=== PATIENT | male | born 1970 | race Caucasian/White ===

== ENCOUNTER 2017-09-25 19:32 | Emergency (ER) | payer MEDICAID ==
--- NOTE | 2017-09-25 20:12 | ER Document Report ---
ED Medical Screen (RME) - General Chief Complaint: Head Injury without LOC Stated Complaint: FALL/HEAD INJURY Time Seen by Provider: 09/25/17 20:08 Notes: Was trying to help with his dog while stepping on cinderblocks to get up into his home, patient fell backwards and struck the back of his head breaking a center block. He has laceration bleeding to the right occipital region. There was no loss of consciousness. Does have a history of prior significant brain injury just over 20 years ago. The patient did have a tetanus booster shot on 06/01/2014 when he was seen here for dog bites. I have greeted and performed a rapid initial assessment of this patient. A comprehensive ED assessment and evaluation of the patient, analysis of test results and completion of the medical decision making process will be conducted by additional ED providers. TRAVEL OUTSIDE OF THE [place] IN LAST 30 DAYS: No - Related Data Allergies/Adverse Reactions: No Known Allergies Allergy (Verified 06/01/14 20:25) Past Medical History - Social History Chew tobacco use (# tins/day): No Frequency of alcohol use: Social Drug Abuse: None Neurological Medical History: Reports: Hx Cerebrovascular Accident - age 26 Renal/ Medical History: Denies: Hx Peritoneal Dialysis Past Surgical History: Reports: Hx Orthopedic Surgery - Immunizations Hx Diphtheria, Pertussis, Tetanus Vaccination: No Physical Exam - Vital signs Vitals: Temp Pulse Resp BP Pulse Ox 98.3 F 119 H 20 128/86 H 93 09/25/17 19:50 09/25/17 19:50 09/25/17 19:50 09/25/17 19:50 09/25/17 19:50 Course - Vital Signs Vital signs: Temp Pulse Resp BP Pulse Ox 98.3 F 119 H 20 128/86 H 93 09/25/17 19:50 09/25/17 19:50 09/25/17 19:50 09/25/17 19:50 09/25/17 19:50
[2017-09-25] MEDS ORDERED: ONDANSETRON 4 MG TAB.RAPDIS PO ONE (20:14)
[2017-09-25] MEDS ORDERED: OXYCODONE-ACETAMINOPHEN 5-325 MG TABLET PO ONE (20:14)
--- NOTE | 2017-09-25 21:08 | RADIOLOGY REPORT (SQ) ---
EXAM DESCRIPTION: CT HEAD WITHOUT COMPLETED DATE/TIME: 09/25/2017 8:54 pm REASON FOR STUDY: Occipital contusion laceration, fell on cinderbloc COMPARISON: 10/17/2007 TECHNIQUE: Axial images acquired through the brain without intravenous contrast. Images reviewed wi th bone, brain and subdural windows. Images stored on PACS. All CT scanners at this facility use dose modulation, iterative reconstruction, and/or weight based d osing when appropriate to reduce radiation dose to as low as reasonably achievable (ALARA). [facility]: Dose Right [facility]: CareDose [facility]: Dose Right [facility]: Teradose 4D [facility]: Smart SET RADIATION DOSE: CT Rad equipment meets quality standard of care and radiation dose reduction techniq ues were employed. CTDIvol: 64.6 mGy. DLP: 1034 mGy-cm. mGy. LIMITATIONS: None. FINDINGS: VENTRICLES: Prominent. CEREBRUM: Old right MCA territory infarct. No evidence of acute infarct. No extra-axial fluid colle ction. CEREBELLUM: No masses. No hemorrhage. No alteration of density. No evidence for acute infarction. EXTRAAXIAL SPACES: Mild age-related involutional change. No fluid collections. No masses. ORBITS AND GLOBE: No intra- or extraconal masses. Normal contour of globe without masses. CALVARIUM: No fracture. PARANASAL SINUSES: No fluid or mucosal thickening. SOFT TISSUES: No mass or hematoma. OTHER: No other significant finding. IMPRESSION: No acute findings. EVIDENCE OF ACUTE STROKE: NO. TECHNICAL DOCUMENTATION: JOB ID: [id number] Quality ID # [id number]: Final reports with documentation of one or more dose reduction techniques (e.g., Au tomated exposure control, adjustment of the mA and/or kV according to patient size, use of iterative reconstruction technique) 2010 [employer]- All Rights Reserved
--- NOTE | 2017-09-25 21:22 | ER Document Report ---
ED Head/Face/Scalp Injury - General Chief Complaint: Head Injury without LOC Stated Complaint: FALL/HEAD INJURY Time Seen by Provider: 09/25/17 20:08 Mode of Arrival: Ambulatory Information source: Patient TRAVEL OUTSIDE OF THE [place] IN LAST 30 DAYS: No - HPI Notes: 47-year-old male presented today for evaluation of closed head injury after he sustained a mechanical fall. Patient hit the back of the head without any loss of consciousness. Patient has notable laceration localized to the right parietal scalp. Patient denies any headache, nausea vomiting, neck pain. Patient is not anticoagulated. Bleeding is well controlled with direct pressure - Related Data Allergies/Adverse Reactions: No Known Allergies Allergy (Verified 06/01/14 20:25) Past Medical History - General Information source: Patient - Social History Smoking Status: Current Every Day Smoker Chew tobacco use (# tins/day): No Frequency of alcohol use: Social Drug Abuse: None Family History: Reviewed & Not Pertinent Patient has suicidal ideation: No Patient has homicidal ideation: No Neurological Medical History: Reports: Hx Cerebrovascular Accident - age 26 Renal/ Medical History: Denies: Hx Peritoneal Dialysis Past Surgical History: Reports: Hx Orthopedic Surgery - Immunizations Hx Diphtheria, Pertussis, Tetanus Vaccination: No Review of Systems - Review of Systems Notes: REVIEW OF SYSTEMS: CONSTITUTIONAL: -fevers, -chills EENT: -eye pain, -difficulty swallowing, -nasal congestion CARDIOVASCULAR: -chest pain, -syncope. RESPIRATORY: -cough, -SOB GASTROINTESTINAL: -abdominal pain, -nausea, -vomiting, -diarrhea GENITOURINARY: -dysuria, -hematuria MUSCULOSKELETAL: -back pain, -neck pain SKIN: -rash or skin lesions. HEMATOLOGIC: -easy bruising or bleeding. LYMPHATIC: -swollen, enlarged glands. NEUROLOGICAL: -altered mental status or loss of consciousness, -headache, - neurologic symptoms PSYCHIATRIC: -anxiety, -depression. ALL OTHER SYSTEMS REVIEWED AND NEGATIVE. Physical Exam - Vital signs Vitals: Temp Pulse Resp BP Pulse Ox 98.3 F 119 H 20 128/86 H 93 09/25/17 19:50 09/25/17 19:50 09/25/17 19:50 09/25/17 19:50 09/25/17 19:50 - Notes Notes: Reviewed vital signs and nursing note as charted by RN. CONSTITUTIONAL: Alert and oriented and responds appropriately to questions HEAD: Patient has right parietal scalp hematoma with approximately 5 similar laceration, linear, 5 mm deep, no violation of scalp EYES: PERRL; Conjunctivae clear, sclerae non-icteric ENT: normal nose NECK: Supple without meningismus; non-tender; normal range of motion without any limitations, no cervical lymphadenopathy, no masses CARD: Regular rate and rhythm; no murmurs RESP: Normal chest excursion without splinting or tachypnea ABD/GI: Normal bowel sounds BACK: The back appears normal and is non-tender to palpation EXT: Normal ROM in all joints SKIN: Normal color for age and rac; warm; dry; good turgor; capillary refill < 2 seconds; no acute lesions noted NEURO: .Cranial nerves 3-12 intact. Motor strength 5/5 bilaterally. Sensation intact to touch bilaterally. No pronator drift. Finger to nose intact bilaterally PSYCH: The patient's mood and manner are appropriate. Grooming and personal hygiene are appropriate. Course - Re-evaluation Re-evalutation: 09/25/17 21:56 47-year-old with closed head injury without any loss of consciousness CT head was obtained to rule out intracranial injury, that did not reveal any injuries Tetanus is up-to-date Scalp laceration was repaired with mandi, please see procedure note Discharge home - Vital Signs Vital signs: Temp Pulse Resp BP Pulse Ox 98.3 F 119 H 20 128/86 H 93 09/25/17 19:50 09/25/17 19:50 09/25/17 19:50 09/25/17 19:50 09/25/17 19:50 - Diagnostic Test Radiology reviewed: Image reviewed - CT scan without any intracranial injuries Procedures - Laceration/Wound Repair Head Time completed: 22:01 Wound length (cm): 5 Wound's Depth, Shape: Linear Laceration pre-procedure: Sterile drapes applied Anesthetic type: 1% Lidocaine w/epi Volume Anesthetic (mLs): 5 Wound explored: No foreign body removed, Contaminated Wound Repaired With: Mandi Number of Sutures: 5 Layer Closure?: Yes Post-procedure wound care: Sterile dressing applied Post-procedure NV exam normal: Yes - Normal Complications: No Discharge - Discharge Clinical Impression: Fall, Closed head injury without loss of consciousness, Scalp hematoma, Scalp laceration Condition: Stable Disposition: HOME, SELF-CARE Instructions: Laceration Care ([facility]) Additional Instructions: You can wash your head with soap and water daily Please come back for staple removal in 7-10 days to emergency department Your primary care doctor can also remove the mandi as well Please come back if there are worsening headaches, nausea vomiting, weakness in the arms or legs, fevers, scalp swelling Referrals: LI CEBALLOS PA-C [Primary Care Provider] - Follow up as needed
[2017-09-25] MEDS ORDERED: LIDOCAINE 1%/EPINEPHRINE INJ 20 ML VIAL INJ ONE (21:28)
[2017-09-25] MEDS ORDERED: LIDOCAINE 1% INJ-PF (10 MG/ML) 30 ML SDV ONE (21:29)
[2017-09-25 22:50] VITALS: BP 133/82
== END 2017-09-25 22:15 | disposition home or self-care (01) ==
LOC: ER 19:32
PROC: 0HQ0XZZ Repair Scalp Skin, External Approach (ICD-10-PCS; principal; 2017-09-25)
DX: S01.01XA Laceration without foreign body of scalp, initial encounter (principal); F17.200 Nicotine dependence, unspecified, uncomplicated; W19.XXXA Unspecified fall, initial encounter; Z86.73 Personal history of transient ischemic attack (TIA), and cerebral infarction without residual deficits
CPT/HCPCS: 99283; 70450; 12002; S0119; J3490

== ENCOUNTER 2017-10-03 14:44 | Emergency (ER) | payer MEDICAID ==
[2017-10-03 15:11] VITALS: BP 139/87
== END 2017-10-03 17:30 | disposition left against medical advice (07) ==
LOC: ER 14:44
DX: Z53.21 Procedure and treatment not carried out due to patient leaving prior to being seen by health care provider (principal)

== ENCOUNTER 2017-10-04 08:56 | Emergency (ER) | payer MEDICAID ==
[2017-10-04 09:25] VITALS: BP 132/75
--- NOTE | 2017-10-04 10:06 | ER Document Report ---
HPI - HPI Patient complains to provider of: staple removal Onset: Other - 8 days Quality of pain: No pain Pain Level: Denies Context: Patient here for staple removal. Patient states wound was stapled about 8 days ago. Patient denies any other continued problems. Associated Symptoms: None Exacerbated by: Denies Relieved by: Denies Similar symptoms previously: No Recently seen / treated by doctor: Yes - ROS ROS below otherwise negative: Yes Systems Reviewed and Negative: Yes All other systems reviewed and negative - GASTROINTESTINAL Gastrointestinal: DENIES: Nausea, Patient vomiting - DERM Skin Color: Normal Skin Problems: Laceration Past Medical History - General Information source: Patient - Social History Smoking Status: Current Every Day Smoker Smoking Education Provided: Yes Frequency of alcohol use: None Drug Abuse: None Occupation: none Family History: Reviewed & Not Pertinent Neurological Medical History: Reports: Hx Cerebrovascular Accident - age 26 Renal/ Medical History: Denies: Hx Peritoneal Dialysis Past Surgical History: Reports: Hx Orthopedic Surgery - Immunizations Hx Diphtheria, Pertussis, Tetanus Vaccination: No Vertical Provider Document - CONSTITUTIONAL Agree With Documented VS: Yes Exam Limitations: No Limitations General Appearance: WD/WN, No Apparent Distress - INFECTION CONTROL TRAVEL OUTSIDE OF THE [place] IN LAST 30 DAYS: No - HEENT HEENT: Normocephalic - NECK Neck: Normal Inspection - RESPIRATORY Respiratory: No Respiratory Distress O2 Sat by Pulse Oximetry: 94 - BACK Back: Normal Inspection - MUSCULOSKELETAL/EXTREMETIES Musculoskeletal/Extremeties: MAEW - NEURO Level of Consciousness: Awake, Alert, Appropriate Motor/Sensory: No Motor Deficit - DERM Integumentary: Warm, Dry, Laceration - Stapled laceration to occipital scalp with 6 intact mandi, wound edges approximated, no concern for infection Course - Re-evaluation Re-evalutation: 10/04/17 10:05 Smoking cessation handout provided to patient - Vital Signs Vital signs: Temp Pulse Resp BP Pulse Ox 97.8 F 80 16 132/75 H 94 10/04/17 09:22 10/04/17 09:22 10/04/17 09:22 10/04/17 09:22 10/04/17 09:22 Discharge - Discharge Clinical Impression: Removal of mandi Condition: Stable Disposition: HOME, SELF-CARE Instructions: Staple Removal ([facility]) Additional Instructions: Return immediately for any new or worsening symptoms Followup with your primary care provider as needed for recheck Forms: Smoking Cessation Education Referrals: LI CEBALLOS PA-C [NO LOCAL MD] - Follow up as needed
== END 2017-10-04 10:41 | disposition home or self-care (01) ==
LOC: ER 08:56
DX: Z48.02 Encounter for removal of sutures (principal); F17.200 Nicotine dependence, unspecified, uncomplicated

== ENCOUNTER 2018-07-28 15:51 | Emergency (ER) | payer MEDICAID ==
[2018-07-28] MEDS ORDERED: DEXAMETHASONE SOD PHOS INJ 10 MG/1 ML VIAL IM ONE (16:39)
[2018-07-28] MEDS ORDERED: IPRATROPIUM/ALBUTEROL 0.5-2.5 MG/3 ML AMPUL NEB ONE (16:40)
--- NOTE | 2018-07-28 18:01 | RADIOLOGY REPORT (SQ) ---
EXAM DESCRIPTION: CHEST 2 VIEWS COMPLETED DATE/TIME: 07/28/2018 5:52 pm REASON FOR STUDY: Cough/wheeze/fever COMPARISON: None. EXAM PARAMETERS: NUMBER OF VIEWS: two views TECHNIQUE: Digital Frontal and Lateral radiographic views of the chest acquired. RADIATION DOSE: NA LIMITATIONS: none FINDINGS: LUNGS AND PLEURA: There is somewhat nodular appearing heterogeneous opacity of the retroca rdiac left lung base. MEDIASTINUM AND HILAR STRUCTURES: No masses or contour abnormalities. HEART AND VASCULAR STRUCTURES: Heart normal size. No evidence for failure. BONES: No acute findings. HARDWARE: None in the chest. OTHER: No other significant finding. IMPRESSION: There is somewhat nodular appearing heterogeneous opacity of the retrocardiac left lung base. Findings may reflect infection or aspiration. Recommend follow-up radiographs in 6-8 weeks to ensure complete radiographic resolution and exclude underlying mass. TECHNICAL DOCUMENTATION: JOB ID: [id number] [employer]- All Rights Reserved Reading location - IP/workstation name: [email or web address]
[2018-07-28] MEDS ORDERED: CEFTRIAXONE INJ 1000 MG VIAL IM ONE (18:55)
[2018-07-28 19:27] VITALS: BP 112/70
--- NOTE | 2018-07-28 19:30 | ER Document Report ---
ED General - General Chief Complaint: Cold Symptoms Stated Complaint: COLD SYMPTOMS Time Seen by Provider: 07/28/18 16:31 Mode of Arrival: Ambulatory Information source: Patient Notes: Patient is a 8-year-old male comes emergency room complaining been sick for 2 weeks. Patient admits to smoking 2 packs of cigarettes a day. He states he has had congestion runny nose and cough he is taking DayQuil, NyQuil, and Rona- [place] plus cold remedy without any relief. Also states that he has some drainage out of his left ear last night. He also states that he got the flu shot before and then he started getting sick. He has a yellowish productive cough this seems to be getting worse over time. Patient has history of hypertension but is currently not taking any medications. He does state that he has a primary care physician who no longer practices in the area and he needs to find a new provider and he will attempt to find one at the same facility he was at previously. TRAVEL OUTSIDE OF THE [place] IN LAST 30 DAYS: No - HPI Onset: Other - 2 weeks Onset/Duration: Sudden, Persistent, Worse Quality of pain: Achy Severity: Moderate Pain Level: 3 Associated symptoms: Body/muscle aches, Chills, Productive cough, Earache, Fever , Headache, Nausea, Rhinnorhea, Sinus pain/drainage, Shortness of breath, Weakness Exacerbated by: Denies Relieved by: Denies Similar symptoms previously: No Recently seen / treated by doctor: No - Related Data Allergies/Adverse Reactions: No Known Allergies Allergy (Verified 06/01/14 20:25) Past Medical History - General Information source: Patient - Social History Smoking Status: Current Every Day Smoker Cigarette use (# per day): Yes - 2 packs a day Chew tobacco use (# tins/day): No Smoking Education Provided: Yes Frequency of alcohol use: None Drug Abuse: None Occupation: Unemployed Lives with: Alone Family History: Reviewed & Not Pertinent Patient has suicidal ideation: No Patient has homicidal ideation: No Neurological Medical History: Reports: Hx Cerebrovascular Accident - age 26 Renal/ Medical History: Denies: Hx Peritoneal Dialysis Past Surgical History: Reports: Hx Orthopedic Surgery - Immunizations Hx Diphtheria, Pertussis, Tetanus Vaccination: No Review of Systems - Review of Systems Constitutional: Chills, Fever, Malaise EENT: Ear pain, Ear discharge, Nose congestion, Nose discharge, Sinus pressure, Sinus discharge, Throat pain Cardiovascular: No symptoms reported Respiratory: See HPI, Cough, Short of breath, Sputum, Wheezing Gastrointestinal: No symptoms reported Genitourinary: No symptoms reported Male Genitourinary: No symptoms reported Musculoskeletal: No symptoms reported Skin: No symptoms reported Hematologic/Lymphatic: No symptoms reported Neurological/Psychological: No symptoms reported -: Yes All other systems reviewed and negative Physical Exam - Vital signs Vitals: Temp Pulse Resp BP Pulse Ox 98.5 F 103 H 20 132/75 H 92 07/28/18 16:03 07/28/18 16:03 07/28/18 16:03 07/28/18 16:03 07/28/18 16:03 Interpretation: Hypertensive, Tachycardic - Notes Notes: PHYSICAL EXAMINATION: GENERAL: Patient is a well-nourished well-developed male who is somewhat disheveled and has a foul body odor smell. Question whether he is homeless or not. He has friends that are with him here who vouch for him. The patient has been living outdoors as well on the cold ground by choice. HEAD: Atraumatic, normocephalic. EYES: Pupils equal round and reactive to light, extraocular movements intact, sclera anicteric, conjunctiva are normal. ENT: examination head and upper airway showed nasal mucosa to be very erythematous and edematous with rhinorrhea green in color. There is bilateral nasal congestion also noted. The examination of bilateral ears shows the TMs to be bulging with air-fluid levels noted. This is occurs bilaterally. The external canals have faint amount of cerumen in do not obstruct the examination in view of the tympanic membranes. External canals otherwise are negative. Further exploration of the oral cavity shows the posterior pharynx to be moderately erythematous with no exudates noted. Uvula is midline with erythema no exudate. The posterior pharynx also has a moderate amount of drainage that is greenish yellow in color. NECK: Normal range of motion, supple without lymphadenopathy LUNGS: Auscultation patient's lung vigil show he has bilateral breath sounds breath sounds are decreased throughout there is faint amount of inspiratory expiratory wheeze noted on auscultation. There is no coarse rhonchi heard and no rales heard. HEART: Tachycardic rate and rhythm without murmurs ABDOMEN: Soft, nontender, nondistended abdomen. No guarding, no rebound. No masses appreciated. Musculoskeletal: Normal range of motion, no pitting or edema. No cyanosis. NEUROLOGICAL: Normal speech, normal gait. Normal sensory, motor exams PSYCH: Normal mood, normal affect. SKIN: Warm, Dry, normal turgor, no rashes or lesions noted. Course - Re-evaluation Re-evalutation: 07/28/18 19:22 Patient's chest x-ray showed a possible pneumonia versus aspiration pneumonia versus mass in the retro-cardiac window area. Radiologist calls for repeat chest x-rays in 6-8 weeks to see the resolution. I had a long talk with the patient as well as the people with the manner which I believe are his parents and insisted that he get good follow-up. They informed me that he does have insurance that he cannot afford his medications and that he will get them outpatient. He has been electively living outside almost homeless but does not have to. They state that he has no primary care provider currently because that person has left town so he is going to follow-up with practice they were at and see if he can it reestablish. Patient does smoke 2 packs of cigarettes a day. He is highly afraid that he will get COPD and states that a large number of members of his family have of COPD and is worried that that will happen to him to. So we have had a discussion. He does not look sick enough to put in the hospital currently and he wants to be tried outpatient on medications. I am in a place him on Zithromax and Cefninir. Also place him on steroids and a Combivent inhaler. - Vital Signs Vital signs: Temp Pulse Resp BP Pulse Ox 98.6 F 111 H 18 112/70 93 07/28/18 19:24 07/28/18 19:24 07/28/18 19:24 07/28/18 19:24 07/28/18 19:24 Discharge - Discharge Clinical Impression: COPD with exacerbation Community acquired pneumonia Qualifiers: Laterality: unspecified laterality Qualified Code(s): J18.9 - Pneumonia, unspecified organism Upper respiratory infection Qualifiers: URI type: unspecified viral URI Qualified Code(s): J06.9 - Acute upper respiratory infection, unspecified Condition: Stable Disposition: HOME, SELF-CARE Instructions: Acetaminophen, Pneumonia ([facility]), Upper Respiratory Illness ([facility]), Viral Syndrome ([facility]) Additional Instructions: As we discussed is good possibility she could have a community-acquired pneumonia versus an aspiration pneumonia or the possibility event of a mass that lies behind the heart. As we discussed it is important that you follow-up with your primary care provider soon as possible to reestablish with them so that they can guide you in his directions. At this point were going to be treating you for a pneumonia which would be worse case scenario and put you on 2 antibiotics steroids and an inhaler. If you by any chance start to feel worse or you have any concerns you return to ER and will most likely admit you at that point. Currently look too well as we discussed Tylenol alternate with Motrin to keep the aches pains and fevers down. And again return here if you have any concerns. Prescriptions: Azithromycin [Zithromax 250 mg Tablet] 250 mg PO ASDIR PRN #6 tablet PRN Reason: Cefdinir 300 mg PO BID #20 capsule Ipratropium/Albuterol Sulfate [Combivent Inhaler] 14.7 gm IH Q6 #1 aer.w.adap Prednisone 10 mg PO ASDIR PRN 6 Days #1 tab.ds.pk PRN Reason: Forms: Elevated Blood Pressure, Smoking Cessation Education Referrals: LI CEBALLOS PA-C [Primary Care Provider] - Follow up as needed
== END 2018-07-28 19:42 | disposition home or self-care (01) ==
LOC: ER 15:51
DX: J18.9 Pneumonia, unspecified organism (principal); J44.1 Chronic obstructive pulmonary disease with (acute) exacerbation; J06.9 Acute upper respiratory infection, unspecified; R09.81 Nasal congestion; R09.89 Other specified symptoms and signs involving the circulatory and respiratory systems; H92.12 Otorrhea, left ear; M79.10 Myalgia, unspecified site; F17.210 Nicotine dependence, cigarettes, uncomplicated; R05 Cough; R06.02 Shortness of breath; H92.02 Otalgia, left ear; R00.0 Tachycardia, unspecified
CPT/HCPCS: 94640; 99283; 96372; 71046; J0696; J1100; J7620

== ENCOUNTER 2018-09-20 14:08 | Emergency (ER) | payer MEDICAID ==
[2018-09-20 14:15] VITALS: BP 135/68
[2018-09-20 16:13] LABS: A TYPE INFLUENZA AG NEGATIVE (NEGATIVE); B INFLUENZA AG NEGATIVE (NEGATIVE)
== END 2018-09-20 16:30 | disposition left against medical advice (07) ==
LOC: ER 14:08
DX: Z53.21 Procedure and treatment not carried out due to patient leaving prior to being seen by health care provider (principal)
CPT/HCPCS: 87804